=== PATIENT | female | born 1935 | race Caucasian/White ===

== ENCOUNTER 2018-09-19 22:51 | Emergency (ER) | payer SELFPAY ==
[2018-09-19 23:04] VITALS: BP 170/81; PULSE 81; RESP 22; TEMP 97; O2SAT 100
--- NOTE | 2018-09-19 23:17 | C.PDOC ---
History Of Present Illness Pt fell on the street. As per family, pt is at baseline confused and denies any physical complaints.the trip/fall was witnessed, and no LOC. Observed small abrasions to right 5th digit and right cheek. The son and refuse to have the pt examined or have any tests performed, stating that she is at baseline Time Seen by Provider: 09/19/18 23:13 Chief Complaint (Nursing): Medical Clearance Past Medical History Vital Signs: Last Vital Signs Temp 97 F L 09/19/18 22:54 Pulse 81 09/19/18 22:54 Resp 22 09/19/18 22:54 BP 170/81 H 09/19/18 22:54 Pulse Ox 100 09/19/18 22:54 - Medical History PMH: HTN Surgical History: Pacemaker Family History: States: No Known Family Hx - Social History Hx Alcohol Use: No Hx Substance Use: No - Immunization History Hx Tetanus Toxoid Vaccination: No Hx Influenza Vaccination: No Hx Pneumococcal Vaccination: No Review Of Systems Constitutional: Negative for: Fever, Chills Skin: Positive for: Other (abrasion) Physical Exam - Physical Exam Appears: Non-toxic, No Acute Distress, Other (refused to be examined) ED Course And Treatment O2 Sat by Pulse Oximetry: 100 Against Medical Advice - AMA Patient Left Against Medical Advice: The patient declines admission to the hospital and wishes to leave the Emergency Department. This action is against my medical advice. This decision was made with informed refusal. The patient was told that admission to the hospital is necessary. Explanation of the reasons why were discussed. The risks of leaving were explained to the patient and include, but are not limited to, worsening of known or currently unknown conditions, permanent disability and from undiagnosed or untreated conditions. The patient has the capacity to make this informed decision and understands my explanation of the current medical problem and risks of leaving. The patient voluntarily accepts these risks and signed an AMA form documenting our conversation. The patient was given the opportunity to ask questions and reconsider. The patient was encouraged to return to the Emergency Department at any time for further care. Disposition Counseled Patient/Family Regarding: Diagnosis - Disposition Referrals: [facility] [Outside] Disposition: AGAINST MEDICAL ADVICE Disposition Time: 23:17 Condition: FAIR Additional Instructions: Please return anytime to be evaluated Instructions: Skin Abrasions (DC) Forms: [employer] (Slovenian) - Clinical Impression Clinical Impression: Fall, Abrasion hand, Abrasion of face
== END 2018-09-19 23:26 | disposition left against medical advice (07) ==
LOC: C.ER 22:51
DX: S60.416A Abrasion of right little finger, initial encounter (principal); S00.81XA Abrasion of other part of head, initial encounter; W01.0XXA Fall on same level from slipping, tripping and stumbling without subsequent striking against object, initial encounter